=== PATIENT | female | born 1945 | race African-American/Black ===

== ENCOUNTER 2021-05-01 10:42 | Inpatient (IN) | payer MEDICARE, MEDICAID ==
[~2021-05-01] VITALS: Ht 152.4 cm; Wt 65.3 kg
[2021-05-01] VITALS (33 sets, daily range): BP systolic 129–199; BP diastolic 66–114
[~2021-05-01 10:42] MED LIST: DONE5TAB33 PO; MEMA10TA2 PO; RISP1DIS PO; SIMV-43 PO
[2021-05-01] MEDS ORDERED: PROPOFOL 10MG/ML 100ML 100 ML IV ONE (11:00)
[2021-05-01] MEDS ORDERED: AZITHROMYCIN 500 MG in DEXT 5% WATER 250 ML IV ONE (11:00)
[2021-05-01] MEDS ORDERED: SODIUM CHLORIDE 0.9% 1,000 ML IV ONE (11:00)
[2021-05-01] MEDS ORDERED: DEXAMETHASONE 10 MG/ML VIAL IV ONE (11:00)
[2021-05-01] MEDS ORDERED: CEFTRIAXONE 1 G PREMIX 50 ML IV ONE (11:00)
[2021-05-01] MEDS ORDERED: ETOMIDATE 2MG/ML 10ML VIAL IV ONE (11:00)
[2021-05-01 11:38] LABS: BG BASE EXCESS -2.2 mmol/L (-2.0-2.0); BG CARBOXYHEMOGLOBIN 0.6 % (0.5-1.5); BG DEOXYHEMOGLOBIN 1.9 % (0.0-5.0); BG FRACTION INSPIRED OXYGEN 100; BG HCO3 ACT 27.2 mmol/L (22.0-26.0); BG METHEMOGLOBIN 0.4 % (0.0-1.5); BG OXYGEN SATURATION 98.1 % (92.0-98.5); BG OXYHEMOGLOBIN 97.1 % (94.0-97.0); BG PCO2 70.6 mmHg (35.0-45.0); BG PH 7.203 (7.350-7.450); BG PO2 145.2 mmHg (75.0-100.0); BG SAMPLE SITE RIGHT RADIAL; BG TOTAL HEMOGLOBIN 12.2 g/dL (12.0-18.0); BG VENT MODE VENT - AC
[2021-05-01 11:46] LABS: BASOPHILS % 0.1 % (0.0-2.0); HEMATOCRIT. 29.9 % (36.0-48.0); HEMOGLOBIN. 9.9 g/dL (12.0-16.0); LYMPHOCYTES % 7.5 % (20.0-50.0); MEAN CORPUSCULAR HEMOGLOBIN 31.1 pg (28.0-32.0); MEAN CORPUSCULAR VOLUME 93.9 fL (81.0-99.0); MEAN PLATELET VOLUME 7.9 fl (7.4-10.4); MONOCYTES % 6.3 % (2.0-8.0); NEUTROPHILS % 86.1 % (40.0-76.0); PLATELET 325 x1000/uL (130-400); RED BLOOD CELL COUNT 3.19 mill/uL (4.2-5.4); RED CELL DISTRIBUTION WIDTH 14.3 % (11.6-14.6)
[2021-05-01 11:52] LABS: CLARITY URINE CLOUDY (CLEAR); COLOR URINE YELLOW (YELLOW); KETONES URINE TRACE (NEGATIVE); LEUKOCYTE ESTERASE URINE NEGATIVE (NEGATIVE); NITRITE URINE NEGATIVE (NEGATIVE); OCCULT BLOOD URINE 1+ (NEGATIVE); PH URINE 5.5 (4.5-8.0); PROTEIN URINE 3+ (NEGATIVE); SPECIFIC GRAVITY URINE 1.025 (1.005-1.030)
[2021-05-01 11:55] LABS: CHLORIDE 125 mEq/L (98-107)
[2021-05-01 12:02] LABS: CREATINE KINASE 128 IU/L (26-192)
[2021-05-01 12:04] LABS: D-DIMER 8.43 mg/L FEU (<0.50); INR 1.1; PROTHROMBIN TIME 11.4 sec (9.6-11.0)
[2021-05-01] MEDS ORDERED: PROPOFOL 10MG/ML 100ML 100 ML IV PRN (12:45)
[2021-05-01] MEDS ORDERED: ASPIRIN 300MG SUPP PR ONE (12:45)
[2021-05-01] MEDS ORDERED: IPRATROPIUM/ALBUTEROL 0.5-3(2.5)MG/3ML NEB HHN PRN (12:45)
[2021-05-01] MEDS ORDERED: FENTANYL CITRATE/PF 2,500 MCG in SODIUM CHLORIDE 0.9% 200 ML IV PRN (12:45)
[2021-05-01] MEDS ORDERED: PANTOPRAZOLE SODIUM 40 MG/VIAL IV SCH (13:00)
[2021-05-01] MEDS: ENOXAPARIN 30MG/0.3ML SYR SUBCUT SCH (13:45)
[2021-05-01] MEDS ORDERED: ONDANSETRON HCL 4MG/2ML INJ IV PRN (17:45)
[2021-05-01] MEDS ORDERED: MAGNESIUM/ALUMINUM HYDROXIDE/SIMETHICONE 30ML UDC PO PRN (17:45)
[2021-05-01] MEDS ORDERED: GUAIFENESIN 200MG/10ML SUGAR FREE UDC PO PRN (17:45)
[2021-05-01] MEDS ORDERED: NA PHOS,M-B/NA PHOS,DI-BA ENEMA 118ML PR PRN (17:45)
[2021-05-01] MEDS ORDERED: ENOXAPARIN 40MG/0.4ML SYR SUBCUT SCH (17:45)
[2021-05-01] MEDS ORDERED: NOREPINEPHRINE 8 MG in DEXT 5% WATER 242 ML IV PRN (17:45)
[2021-05-01] MEDS ORDERED: DOCUSATE SODIUM 100MG CAPSULE PO PRN (17:45)
[2021-05-01 22:53] LABS: T4 FREE 1.26 ng/dL (0.76-1.46)
[2021-05-02] VITALS (94 sets, daily range): BP systolic 105–185; BP diastolic 48–103
[2021-05-02] MEDS: CLONIDINE 0.1MG TABLET PO PRN (00:36)
[2021-05-02] MEDS: FENTANYL CITRATE/PF 2,500 MCG in SODIUM CHLORIDE 0.9% 200 ML IV PRN (00:37)
[2021-05-02 04:53] LABS: BASOPHILS % 0.1 % (0.0-2.0); HEMATOCRIT. 32.7 % (36.0-48.0); HEMOGLOBIN. 10.7 g/dL (12.0-16.0); LYMPHOCYTES % 8.9 % (20.0-50.0); MEAN CORPUSCULAR HEMOGLOBIN 30.5 pg (28.0-32.0); MEAN CORPUSCULAR VOLUME 93.2 fL (81.0-99.0); MEAN PLATELET VOLUME 8.4 fl (7.4-10.4); MONOCYTES % 4.6 % (2.0-8.0); NEUTROPHILS % 86.4 % (40.0-76.0); PLATELET 359 x1000/uL (130-400); RED BLOOD CELL COUNT 3.51 mill/uL (4.2-5.4); RED CELL DISTRIBUTION WIDTH 14.2 % (11.6-14.6)
[2021-05-02 05:13] LABS: CHLORIDE 126 mEq/L (98-107)
[2021-05-02 05:25] LABS: PHOSPHORUS 2.8 mg/dL (2.5-4.9)
[2021-05-02] MEDS: AZITHROMYCIN 500MG in DEXTROSE 5% WATER 250ML IV SCH (08:45)
[2021-05-02] MEDS: DEXAMETHASONE 10 MG/ML VIAL IV SCH (08:45)
[2021-05-02] MEDS: PANTOPRAZOLE SODIUM 40 MG/VIAL IV SCH (08:45)
[2021-05-02] MEDS: ENOXAPARIN 30MG/0.3ML SYR SUBCUT SCH (08:46)
[2021-05-02] MEDS ORDERED: AZITHROMYCIN 500 MG in DEXT 5% WATER 250 ML IV SCH (09:00)
[2021-05-02] MEDS ORDERED: DEXTROSE 50% WATER 50ML SYRINGE IV PRN ×2 (09:30→19:30)
[2021-05-02 09:48] LABS: BG BASE EXCESS 0.3 mmol/L (-2.0-2.0); BG CARBOXYHEMOGLOBIN 0.2 % (0.5-1.5); BG DEOXYHEMOGLOBIN 2.8 % (0.0-5.0); BG FRACTION INSPIRED OXYGEN 80; BG HCO3 ACT 25.3 mmol/L (22.0-26.0); BG METHEMOGLOBIN 0.3 % (0.0-1.5); BG OXYGEN SATURATION 97.2 % (92.0-98.5); BG OXYHEMOGLOBIN 96.7 % (94.0-97.0); BG PCO2 42.4 mmHg (35.0-45.0); BG PH 7.394 (7.350-7.450); BG PO2 101.4 mmHg (75.0-100.0); BG SAMPLE SITE RIGHT RADIAL; BG TOTAL HEMOGLOBIN 10.6 g/dL (12.0-18.0); BG VENT MODE VENT - AC
[2021-05-02] MEDS: CEFTRIAXONE 1,000 MG in DEXTROSE 5% WATER 50 ML IV SCH (09:48)
[2021-05-02] MEDS ORDERED: CEFTRIAXONE 1 G PREMIX 50 ML IV SCH (10:00)
[2021-05-02] MEDS: INSULIN LISPRO 100 UNITS/ML SUBCUT SCH ×3 (12:18→23:30)
[2021-05-02] MEDS: BLOOD SUGAR DIAGNOSTIC STRIP TEST SCH ×3 (12:20→23:30)
[2021-05-02 15:20] LABS: FOLIC ACID (FOLATE) SERUM 5.6 ng/mL (>5.38)
[2021-05-02] MEDS ORDERED: FUROSEMIDE 40MG/4ML VIAL IVP NR (18:00)
[2021-05-03] VITALS (94 sets, daily range): BP systolic 102–161; BP diastolic 51–99
[2021-05-03] MEDS: FENTANYL CITRATE/PF 2,500 MCG in SODIUM CHLORIDE 0.9% 200 ML IV PRN ×2 (02:29→18:14)
[2021-05-03 05:33] LABS: HEMATOCRIT. 31.3 % (36.0-48.0); HEMOGLOBIN. 10.5 g/dL (12.0-16.0); MEAN CORPUSCULAR HEMOGLOBIN 31.3 pg (28.0-32.0); MEAN CORPUSCULAR VOLUME 93.4 fL (81.0-99.0); MEAN PLATELET VOLUME 8.5 fl (7.4-10.4); PLATELET 346 x1000/uL (130-400); RED BLOOD CELL COUNT 3.35 mill/uL (4.2-5.4); RED CELL DISTRIBUTION WIDTH 14.2 % (11.6-14.6)
[2021-05-03 05:41] LABS: CHLORIDE 124 mEq/L (98-107)
[2021-05-03] MEDS: BLOOD SUGAR DIAGNOSTIC STRIP TEST SCH ×3 (06:10→17:17)
[2021-05-03] MEDS: INSULIN LISPRO 100 UNITS/ML SUBCUT SCH ×3 (06:16→17:22)
[2021-05-03] MEDS: DEXAMETHASONE 10 MG/ML VIAL IV SCH (08:01)
[2021-05-03] MEDS: AZITHROMYCIN 500MG in DEXTROSE 5% WATER 250ML IV SCH (08:01)
[2021-05-03] MEDS: PANTOPRAZOLE SODIUM 40 MG/VIAL IV SCH (08:01)
[2021-05-03] MEDS: ENOXAPARIN 30MG/0.3ML SYR SUBCUT SCH (08:02)
[2021-05-03 09:43] LABS: BG BASE EXCESS 2.7 mmol/L (-2.0-2.0); BG CARBOXYHEMOGLOBIN 0.3 % (0.5-1.5); BG DEOXYHEMOGLOBIN 3.2 % (0.0-5.0); BG FRACTION INSPIRED OXYGEN 80; BG HCO3 ACT 28.8 mmol/L (22.0-26.0); BG METHEMOGLOBIN 0.2 % (0.0-1.5); BG OXYGEN SATURATION 96.8 % (92.0-98.5); BG OXYHEMOGLOBIN 96.3 % (94.0-97.0); BG PCO2 51.4 mmHg (35.0-45.0); BG PH 7.367 (7.350-7.450); BG SAMPLE SITE RIGHT RADIAL; BG TOTAL HEMOGLOBIN 11.6 g/dL (12.0-18.0); BG VENT MODE VENT - AC
[2021-05-03] MEDS: LISINOPRIL 20MG TABLET PO SCH (10:48)
[2021-05-03] MEDS: CEFTRIAXONE 1,000 MG in DEXTROSE 5% WATER 50 ML IV SCH (10:48)
[2021-05-03] MEDS: FOLIC ACID 1MG TABLET PO SCH (12:34)
[2021-05-03] MEDS: THIAMINE HCL 100MG TABLET PO SCH (12:34)
[2021-05-03 14:59] LABS: PLATELET ESTIMATE NORMAL
[2021-05-03] MEDS: DOXYCYCLINE HYCLATE 100MG CAPSULE PO SCH (15:39)
[2021-05-03] MEDS: LEVETIRACETAM 500MG/5ML CUP PO SCH (20:00)
[2021-05-04] VITALS (96 sets, daily range): BP systolic 90–159; BP diastolic 36–87
[2021-05-04] MEDS: METOCLOPRAMIDE HCL 10MG/2ML VIAL IV SCH ×4 (01:05→17:43)
[2021-05-04] MEDS: INSULIN LISPRO 100 UNITS/ML SUBCUT SCH ×4 (01:06→17:44)
[2021-05-04] MEDS: DOXYCYCLINE HYCLATE 100MG CAPSULE PO SCH ×2 (05:10→17:43)
[2021-05-04] MEDS: BLOOD SUGAR DIAGNOSTIC STRIP TEST SCH ×4 (05:10→17:37)
[2021-05-04] MEDS: FENTANYL CITRATE/PF 2,500 MCG in SODIUM CHLORIDE 0.9% 200 ML IV PRN (05:12)
[2021-05-04 05:34] LABS: HEMATOCRIT. 30.5 % (36.0-48.0); HEMOGLOBIN. 9.7 g/dL (12.0-16.0); MEAN CORPUSCULAR HEMOGLOBIN 29.8 pg (28.0-32.0); MEAN CORPUSCULAR VOLUME 93.5 fL (81.0-99.0); MEAN PLATELET VOLUME 8.7 fl (7.4-10.4); PLATELET 347 x1000/uL (130-400); RED BLOOD CELL COUNT 3.27 mill/uL (4.2-5.4); RED CELL DISTRIBUTION WIDTH 14.1 % (11.6-14.6)
[2021-05-04 05:39] LABS: CHLORIDE 123 mEq/L (98-107)
[2021-05-04 08:39] LABS: BG BASE EXCESS 1.3 mmol/L (-2.0-2.0); BG CARBOXYHEMOGLOBIN 0.3 % (0.5-1.5); BG DEOXYHEMOGLOBIN 5.5 % (0.0-5.0); BG FRACTION INSPIRED OXYGEN 70; BG HCO3 ACT 25.7 mmol/L (22.0-26.0); BG METHEMOGLOBIN 0.2 % (0.0-1.5); BG OXYGEN SATURATION 94.5 % (92.0-98.5); BG PCO2 40.2 mmHg (35.0-45.0); BG PH 7.424 (7.350-7.450); BG PO2 72.3 mmHg (75.0-100.0); BG SAMPLE SITE RIGHT RADIAL; BG TOTAL HEMOGLOBIN 10.1 g/dL (12.0-18.0); BG TOTAL RESPIRATORY RATE 22 b/min; BG VENT MODE VENT - AC
[2021-05-04] MEDS: LEVETIRACETAM 500MG/5ML CUP PO SCH ×2 (09:39→20:07)
[2021-05-04] MEDS: FOLIC ACID 1MG TABLET PO SCH (09:39)
[2021-05-04] MEDS: DEXAMETHASONE 10 MG/ML VIAL IV SCH (09:40)
[2021-05-04] MEDS: ENOXAPARIN 30MG/0.3ML SYR SUBCUT SCH (09:40)
[2021-05-04] MEDS: THIAMINE HCL 100MG TABLET PO SCH (09:40)
[2021-05-04] MEDS: PANTOPRAZOLE SODIUM 40 MG/VIAL IV SCH (09:40)
[2021-05-04] MEDS: CEFTRIAXONE 1,000 MG in DEXTROSE 5% WATER 50 ML IV SCH (09:41)
[2021-05-04] MEDS: LISINOPRIL 20MG TABLET PO SCH (09:41)
[2021-05-04] MEDS ORDERED: RISPERIDONE 1MG TABLET PO SCH (12:00)
[2021-05-04] MEDS: IPRATROPIUM/ALBUTEROL 0.5-3(2.5)MG/3ML NEB HHN SCH ×3 (12:40→20:01)
[2021-05-04 12:42] LABS: NUCLEATED RED BLOOD CELLS 1 /100 WBC; PLATELET ESTIMATE NORMAL
[2021-05-04] MEDS ORDERED: MIDAZOLAM 100MG/100ML PMX 100 ML IV PRN (13:00)
[2021-05-04] MEDS: LORAZEPAM 2MG/ML CPJ IV PRN ×2 (13:29→17:44)
[2021-05-04] MEDS: MIDAZOLAM HCL 100 MG in SODIUM CHLORIDE 0.9% 100 ML IV PRN (13:51)
[2021-05-05] VITALS (97 sets, daily range): BP systolic 79–167; BP diastolic 42–121
[2021-05-05] MEDS: METOCLOPRAMIDE HCL 10MG/2ML VIAL IV SCH ×4 (00:13→17:07)
[2021-05-05] MEDS: IPRATROPIUM/ALBUTEROL 0.5-3(2.5)MG/3ML NEB HHN SCH ×6 (00:15→20:40)
[2021-05-05] MEDS: BLOOD SUGAR DIAGNOSTIC STRIP TEST SCH ×4 (00:28→17:04)
[2021-05-05] MEDS: DOXYCYCLINE HYCLATE 100MG CAPSULE PO SCH ×2 (05:06→17:07)
[2021-05-05] MEDS: INSULIN LISPRO 100 UNITS/ML SUBCUT SCH ×4 (05:20→17:07)
[2021-05-05 07:41] LABS: BG BASE EXCESS 1.6 mmol/L (-2.0-2.0); BG CARBOXYHEMOGLOBIN 0.3 % (0.5-1.5); BG DEOXYHEMOGLOBIN 6.3 % (0.0-5.0); BG HCO3 ACT 25.5 mmol/L (22.0-26.0); BG METHEMOGLOBIN 0.1 % (0.0-1.5); BG OXYGEN SATURATION 93.7 % (92.0-98.5); BG OXYHEMOGLOBIN 93.3 % (94.0-97.0); BG PCO2 37.3 mmHg (35.0-45.0); BG PH 7.452 (7.350-7.450); BG PO2 68.9 mmHg (75.0-100.0); BG SAMPLE SITE RIGHT RADIAL; BG TOTAL HEMOGLOBIN 10.9 g/dL (12.0-18.0); BG VENT MODE VENT - AC
[2021-05-05] MEDS: PANTOPRAZOLE SODIUM 40 MG/VIAL IV SCH (08:12)
[2021-05-05] MEDS: LISINOPRIL 20MG TABLET PO SCH (08:12)
[2021-05-05] MEDS: FOLIC ACID 1MG TABLET PO SCH (08:12)
[2021-05-05] MEDS: LEVETIRACETAM 500MG/5ML CUP PO SCH ×2 (08:12→20:44)
[2021-05-05] MEDS: THIAMINE HCL 100MG TABLET PO SCH (08:12)
[2021-05-05] MEDS: ENOXAPARIN 30MG/0.3ML SYR SUBCUT SCH (08:12)
[2021-05-05] MEDS: DEXAMETHASONE 10 MG/ML VIAL IV SCH (08:13)
[2021-05-05] MEDS: CEFTRIAXONE 1,000 MG in DEXTROSE 5% WATER 50 ML IV SCH (09:11)
[2021-05-05] MEDS: ACETAMINOPHEN 325MG TABLET PO PRN (11:58)
[2021-05-05 12:32] LABS: HEMATOCRIT. 30.4 % (36.0-48.0); HEMOGLOBIN. 9.8 g/dL (12.0-16.0); MEAN CORPUSCULAR HEMOGLOBIN 29.9 pg (28.0-32.0); MEAN CORPUSCULAR VOLUME 92.7 fL (81.0-99.0); MEAN PLATELET VOLUME 8.8 fl (7.4-10.4); PLATELET 262 x1000/uL (130-400); RED BLOOD CELL COUNT 3.28 mill/uL (4.2-5.4); RED CELL DISTRIBUTION WIDTH 13.5 % (11.6-14.6)
[2021-05-05 12:39] LABS: CHLORIDE 116 mEq/L (98-107)
[2021-05-05 13:03] LABS: PLATELET ESTIMATE NORMAL
[2021-05-05] MEDS: CLONIDINE 0.1MG TABLET PO PRN (22:39)
[2021-05-06] VITALS (94 sets, daily range): BP systolic 103–175; BP diastolic 54–103
[2021-05-06] MEDS: IPRATROPIUM/ALBUTEROL 0.5-3(2.5)MG/3ML NEB HHN SCH ×6 (00:23→21:57)
[2021-05-06 05:40] LABS: HEMATOCRIT. 31.9 % (36.0-48.0); HEMOGLOBIN. 10.5 g/dL (12.0-16.0); MEAN CORPUSCULAR HEMOGLOBIN 30.7 pg (28.0-32.0); MEAN CORPUSCULAR VOLUME 93.3 fL (81.0-99.0); PLATELET 263 x1000/uL (130-400); RED BLOOD CELL COUNT 3.42 mill/uL (4.2-5.4); RED CELL DISTRIBUTION WIDTH 13.9 % (11.6-14.6)
[2021-05-06] MEDS: BLOOD SUGAR DIAGNOSTIC STRIP TEST SCH ×4 (05:42→17:02)
[2021-05-06] MEDS: CLONIDINE 0.1MG TABLET PO PRN (05:42)
[2021-05-06] MEDS: DOXYCYCLINE HYCLATE 100MG CAPSULE PO SCH ×2 (05:42→17:28)
[2021-05-06] MEDS: METOCLOPRAMIDE HCL 10MG/2ML VIAL IV SCH ×4 (05:42→17:28)
[2021-05-06] MEDS: INSULIN LISPRO 100 UNITS/ML SUBCUT SCH ×4 (05:43→17:30)
[2021-05-06 05:44] LABS: CHLORIDE 116 mEq/L (98-107)
[2021-05-06] MEDS: ENOXAPARIN 30MG/0.3ML SYR SUBCUT SCH (08:09)
[2021-05-06] MEDS: LEVETIRACETAM 500MG/5ML CUP PO SCH ×2 (08:09→21:17)
[2021-05-06] MEDS: DEXAMETHASONE 10 MG/ML VIAL IV SCH (08:09)
[2021-05-06] MEDS: PANTOPRAZOLE SODIUM 40 MG/VIAL IV SCH (08:09)
[2021-05-06] MEDS: THIAMINE HCL 100MG TABLET PO SCH (08:09)
[2021-05-06] MEDS: FOLIC ACID 1MG TABLET PO SCH (08:10)
[2021-05-06] MEDS: LISINOPRIL 20MG TABLET PO SCH (08:10)
[2021-05-06] MEDS: CEFTRIAXONE 1,000 MG in DEXTROSE 5% WATER 50 ML IV SCH (09:20)
[2021-05-06 12:11] LABS: PLATELET ESTIMATE NORMAL
[2021-05-06] MEDS: MIDAZOLAM HCL 100 MG in SODIUM CHLORIDE 0.9% 100 ML IV PRN (14:38)
[2021-05-07] VITALS (95 sets, daily range): BP systolic 106–172; BP diastolic 37–101
[2021-05-07] MEDS: METOCLOPRAMIDE HCL 10MG/2ML VIAL IV SCH ×5 (00:14→23:25)
[2021-05-07] MEDS: BLOOD SUGAR DIAGNOSTIC STRIP TEST SCH ×5 (00:15→23:46)
[2021-05-07] MEDS: IPRATROPIUM/ALBUTEROL 0.5-3(2.5)MG/3ML NEB HHN SCH ×6 (02:13→20:47)
[2021-05-07] MEDS: DOXYCYCLINE HYCLATE 100MG CAPSULE PO SCH ×2 (05:32→17:45)
[2021-05-07] MEDS: MIDAZOLAM HCL 100 MG in SODIUM CHLORIDE 0.9% 100 ML IV PRN (05:48)
[2021-05-07] MEDS: INSULIN LISPRO 100 UNITS/ML SUBCUT SCH ×5 (05:49→23:46)
[2021-05-07 07:39] LABS: BG BASE EXCESS 3.2 mmol/L (-2.0-2.0); BG CARBOXYHEMOGLOBIN 0.3 % (0.5-1.5); BG DEOXYHEMOGLOBIN 7.6 % (0.0-5.0); BG HCO3 ACT 26.8 mmol/L (22.0-26.0); BG METHEMOGLOBIN 0.1 % (0.0-1.5); BG OXYGEN SATURATION 92.4 % (92.0-98.5); BG PCO2 37.2 mmHg (35.0-45.0); BG PH 7.476 (7.350-7.450); BG SAMPLE SITE RIGHT RADIAL; BG TOTAL HEMOGLOBIN 10.4 g/dL (12.0-18.0); BG VENT MODE VENT - AC
[2021-05-07] MEDS: LEVETIRACETAM 500MG/5ML CUP PO SCH ×2 (09:27→20:44)
[2021-05-07] MEDS: FOLIC ACID 1MG TABLET PO SCH (09:28)
[2021-05-07] MEDS: THIAMINE HCL 100MG TABLET PO SCH (09:28)
[2021-05-07] MEDS: PANTOPRAZOLE SODIUM 40 MG/VIAL IV SCH (09:28)
[2021-05-07] MEDS: ENOXAPARIN 40MG/0.4ML SYR SUBCUT SCH (09:28)
[2021-05-07] MEDS: DEXAMETHASONE 10 MG/ML VIAL IV SCH (09:28)
[2021-05-07] MEDS: LISINOPRIL 20MG TABLET PO SCH (09:28)
[2021-05-07] MEDS: FENTANYL CITRATE/PF 2,500 MCG in SODIUM CHLORIDE 0.9% 200 ML IV PRN (09:30)
[2021-05-07] MEDS ORDERED: METOCLOPRAMIDE HCL 10MG/2ML VIAL IV SCH (18:00)
[2021-05-08] VITALS (97 sets, daily range): BP systolic 104–148; BP diastolic 52–84
[2021-05-08] MEDS: IPRATROPIUM/ALBUTEROL 0.5-3(2.5)MG/3ML NEB HHN SCH ×6 (00:57→20:29)
[2021-05-08 04:58] LABS: HEMATOCRIT. 28.9 % (36.0-48.0); HEMOGLOBIN. 9.4 g/dL (12.0-16.0); MEAN CORPUSCULAR VOLUME 92.2 fL (81.0-99.0); MEAN PLATELET VOLUME 9.4 fl (7.4-10.4); PLATELET 313 x1000/uL (130-400); RED BLOOD CELL COUNT 3.14 mill/uL (4.2-5.4); RED CELL DISTRIBUTION WIDTH 14.1 % (11.6-14.6)
[2021-05-08 05:07] LABS: CHLORIDE 110 mEq/L (98-107)
[2021-05-08] MEDS: INSULIN LISPRO 100 UNITS/ML SUBCUT SCH ×3 (05:14→17:30)
[2021-05-08] MEDS: BLOOD SUGAR DIAGNOSTIC STRIP TEST SCH ×3 (05:14→17:27)
[2021-05-08] MEDS: DOXYCYCLINE HYCLATE 100MG CAPSULE PO SCH (05:22)
[2021-05-08] MEDS: METOCLOPRAMIDE HCL 10MG/2ML VIAL IV SCH ×4 (05:22→23:10)
[2021-05-08] MEDS: FENTANYL CITRATE/PF 2,500 MCG in SODIUM CHLORIDE 0.9% 200 ML IV PRN (06:29)
[2021-05-08] MEDS: THIAMINE HCL 100MG TABLET PO SCH (08:26)
[2021-05-08] MEDS: DEXAMETHASONE 10 MG/ML VIAL IV SCH (08:26)
[2021-05-08] MEDS: FOLIC ACID 1MG TABLET PO SCH (08:27)
[2021-05-08] MEDS: LEVETIRACETAM 500MG/5ML CUP PO SCH ×2 (08:28→21:33)
[2021-05-08] MEDS: PANTOPRAZOLE SODIUM 40 MG/VIAL IV SCH (08:28)
[2021-05-08] MEDS: ENOXAPARIN 40MG/0.4ML SYR SUBCUT SCH (08:28)
[2021-05-08] MEDS: LISINOPRIL 20MG TABLET PO SCH (08:29)
[2021-05-08 08:40] LABS: BG BASE EXCESS 1.5 mmol/L (-2.0-2.0); BG CARBOXYHEMOGLOBIN 0.1 % (0.5-1.5); BG DEOXYHEMOGLOBIN 9.6 % (0.0-5.0); BG FRACTION INSPIRED OXYGEN 55; BG HCO3 ACT 26.6 mmol/L (22.0-26.0); BG METHEMOGLOBIN 0.1 % (0.0-1.5); BG OXYGEN SATURATION 90.4 % (92.0-98.5); BG OXYHEMOGLOBIN 90.2 % (94.0-97.0); BG PCO2 44.3 mmHg (35.0-45.0); BG PH 7.396 (7.350-7.450); BG SAMPLE SITE RIGHT RADIAL; BG TOTAL HEMOGLOBIN 9.7 g/dL (12.0-18.0); BG VENT MODE VENT - SIMV
[2021-05-08 10:28] LABS: PLATELET ESTIMATE NORMAL
[2021-05-09] VITALS (93 sets, daily range): BP systolic 107–167; BP diastolic 56–98
[2021-05-09] MEDS: IPRATROPIUM/ALBUTEROL 0.5-3(2.5)MG/3ML NEB HHN SCH ×6 (00:04→20:44)
[2021-05-09] MEDS: BLOOD SUGAR DIAGNOSTIC STRIP TEST SCH ×4 (00:04→18:28)
[2021-05-09] MEDS: INSULIN LISPRO 100 UNITS/ML SUBCUT SCH ×4 (00:06→18:00)
[2021-05-09] MEDS: METOCLOPRAMIDE HCL 10MG/2ML VIAL IV SCH ×3 (05:09→18:28)
[2021-05-09 06:07] LABS: CHLORIDE 108 mEq/L (98-107); HEMOGLOBIN. 9.3 g/dL (12.0-16.0); MEAN CORPUSCULAR HEMOGLOBIN 30.3 pg (28.0-32.0); MEAN PLATELET VOLUME 9.2 fl (7.4-10.4); PLATELET 289 x1000/uL (130-400); RED BLOOD CELL COUNT 3.09 mill/uL (4.2-5.4); RED CELL DISTRIBUTION WIDTH 13.8 % (11.6-14.6)
[2021-05-09] MEDS: FENTANYL CITRATE/PF 2,500 MCG in SODIUM CHLORIDE 0.9% 200 ML IV PRN ×2 (06:48→12:54)
[2021-05-09 08:00] LABS: BG BASE EXCESS 2.6 mmol/L (-2.0-2.0); BG CARBOXYHEMOGLOBIN 0.3 % (0.5-1.5); BG DEOXYHEMOGLOBIN 12.2 % (0.0-5.0); BG METHEMOGLOBIN 0.2 % (0.0-1.5); BG OXYGEN SATURATION 87.7 % (92.0-98.5); BG OXYHEMOGLOBIN 87.3 % (94.0-97.0); BG PCO2 46.9 mmHg (35.0-45.0); BG PH 7.394 (7.350-7.450); BG SAMPLE SITE RIGHT RADIAL; BG TOTAL HEMOGLOBIN 10.1 g/dL (12.0-18.0); BG VENT MODE VENT - SIMV
[2021-05-09] MEDS: LEVETIRACETAM 500MG/5ML CUP PO SCH ×2 (08:37→20:27)
[2021-05-09] MEDS: LISINOPRIL 20MG TABLET PO SCH (08:38)
[2021-05-09] MEDS: PANTOPRAZOLE SODIUM 40 MG/VIAL IV SCH (08:38)
[2021-05-09] MEDS: ENOXAPARIN 40MG/0.4ML SYR SUBCUT SCH (08:38)
[2021-05-09] MEDS: DEXAMETHASONE 10 MG/ML VIAL IV SCH (08:38)
[2021-05-09] MEDS: THIAMINE HCL 100MG TABLET PO SCH (08:38)
[2021-05-09] MEDS: FOLIC ACID 1MG TABLET PO SCH (08:39)
[2021-05-09 09:08] LABS: PLATELET ESTIMATE NORMAL
[2021-05-09] MEDS ORDERED: DOPAMINE 400MG/250ML PREMIX 250 ML IV PRN (14:00)
[2021-05-10] VITALS (99 sets, daily range): BP systolic 96–239; BP diastolic 53–135
[2021-05-10] MEDS: IPRATROPIUM/ALBUTEROL 0.5-3(2.5)MG/3ML NEB HHN SCH ×6 (00:17→21:05)
[2021-05-10] MEDS: METOCLOPRAMIDE HCL 10MG/2ML VIAL IV SCH ×4 (01:12→23:25)
[2021-05-10] MEDS: CLONIDINE 0.1MG TABLET PO PRN ×2 (04:02→17:11)
[2021-05-10] MEDS: BLOOD SUGAR DIAGNOSTIC STRIP TEST SCH ×5 (05:29→23:20)
[2021-05-10] MEDS: INSULIN LISPRO 100 UNITS/ML SUBCUT SCH ×4 (05:34→23:20)
[2021-05-10 05:54] LABS: BASOPHILS % 0.1 % (0.0-2.0); EOSINOPHILS % 0.1 % (0.0-5.0); HEMOGLOBIN. 11.1 g/dL (12.0-16.0); LYMPHOCYTES % 12.3 % (20.0-50.0); MEAN CORPUSCULAR HEMOGLOBIN 30.4 pg (28.0-32.0); MEAN CORPUSCULAR VOLUME 92.7 fL (81.0-99.0); MEAN PLATELET VOLUME 9.7 fl (7.4-10.4); NEUTROPHILS % 80.5 % (40.0-76.0); PLATELET 404 x1000/uL (130-400); RED BLOOD CELL COUNT 3.66 mill/uL (4.2-5.4); RED CELL DISTRIBUTION WIDTH 13.7 % (11.6-14.6)
[2021-05-10 06:09] LABS: CHLORIDE 106 mEq/L (98-107)
[2021-05-10] MEDS: PANTOPRAZOLE SODIUM 40 MG/VIAL IV SCH (10:53)
[2021-05-10] MEDS: THIAMINE HCL 100MG TABLET PO SCH (10:54)
[2021-05-10] MEDS: LEVETIRACETAM 500MG/5ML CUP PO SCH ×2 (10:54→20:23)
[2021-05-10] MEDS: ENOXAPARIN 40MG/0.4ML SYR SUBCUT SCH (10:54)
[2021-05-10] MEDS: DEXAMETHASONE 10 MG/ML VIAL IV SCH (10:54)
[2021-05-10] MEDS: FOLIC ACID 1MG TABLET PO SCH (11:04)
[2021-05-10] MEDS: LISINOPRIL 20MG TABLET PO SCH (11:04)
[2021-05-11] VITALS (91 sets, daily range): BP systolic 99–192; BP diastolic 51–112
[2021-05-11] MEDS: IPRATROPIUM/ALBUTEROL 0.5-3(2.5)MG/3ML NEB HHN SCH ×5 (01:12→20:56)
[2021-05-11] MEDS: FENTANYL CITRATE/PF 2,500 MCG in SODIUM CHLORIDE 0.9% 200 ML IV PRN (02:31)
[2021-05-11] MEDS: METOCLOPRAMIDE HCL 10MG/2ML VIAL IV SCH ×4 (05:11→23:37)
[2021-05-11] MEDS: BLOOD SUGAR DIAGNOSTIC STRIP TEST SCH ×4 (05:11→23:35)
[2021-05-11] MEDS: INSULIN LISPRO 100 UNITS/ML SUBCUT SCH ×4 (05:18→23:38)
[2021-05-11] MEDS: ENOXAPARIN 40MG/0.4ML SYR SUBCUT SCH (08:06)
[2021-05-11] MEDS: PANTOPRAZOLE SODIUM 40 MG/VIAL IV SCH (08:06)
[2021-05-11] MEDS: LEVETIRACETAM 500MG/5ML CUP PO SCH ×2 (08:06→20:22)
[2021-05-11] MEDS: LISINOPRIL 20MG TABLET PO SCH (08:07)
[2021-05-11] MEDS: THIAMINE HCL 100MG TABLET PO SCH (08:07)
[2021-05-11] MEDS: DEXAMETHASONE 10 MG/ML VIAL IV SCH (08:07)
[2021-05-11] MEDS: FOLIC ACID 1MG TABLET PO SCH (08:07)
[2021-05-11] MEDS: ACETAMINOPHEN 325MG TABLET PO PRN ×2 (08:08→18:25)
[2021-05-11 08:37] LABS: BG CARBOXYHEMOGLOBIN 0.5 % (0.5-1.5); BG DEOXYHEMOGLOBIN 6.9 % (0.0-5.0); BG FRACTION INSPIRED OXYGEN 55; BG HCO3 ACT 31.4 mmol/L (22.0-26.0); BG METHEMOGLOBIN 0.3 % (0.0-1.5); BG OXYHEMOGLOBIN 92.3 % (94.0-97.0); BG PCO2 44.7 mmHg (35.0-45.0); BG PH 7.465 (7.350-7.450); BG SAMPLE SITE RIGHT RADIAL; BG VENT MODE VENT - SIMV
[2021-05-11] MEDS: CLONIDINE 0.1MG TABLET PO PRN (14:19)
[2021-05-12] VITALS (75 sets, daily range): BP systolic 114–207; BP diastolic 58–125
[2021-05-12] MEDS: IPRATROPIUM/ALBUTEROL 0.5-3(2.5)MG/3ML NEB HHN SCH ×6 (01:04→20:13)
[2021-05-12] MEDS: BLOOD SUGAR DIAGNOSTIC STRIP TEST SCH ×4 (05:34→23:39)
[2021-05-12] MEDS: METOCLOPRAMIDE HCL 10MG/2ML VIAL IV SCH ×4 (05:34→23:41)
[2021-05-12] MEDS: CLONIDINE 0.1MG TABLET PO PRN (05:34)
[2021-05-12] MEDS: INSULIN LISPRO 100 UNITS/ML SUBCUT SCH ×4 (05:35→23:41)
[2021-05-12 06:04] LABS: HEMATOCRIT. 28.6 % (36.0-48.0); HEMOGLOBIN. 9.4 g/dL (12.0-16.0); MEAN CORPUSCULAR HEMOGLOBIN 30.3 pg (28.0-32.0); MEAN CORPUSCULAR VOLUME 92.2 fL (81.0-99.0); MEAN PLATELET VOLUME 9.5 fl (7.4-10.4); PLATELET 292 x1000/uL (130-400); RED CELL DISTRIBUTION WIDTH 13.8 % (11.6-14.6)
[2021-05-12 06:10] LABS: CHLORIDE 103 mEq/L (98-107)
[2021-05-12 08:04] LABS: BG DEOXYHEMOGLOBIN 12.8 % (0.0-5.0); BG HCO3 ACT 32.4 mmol/L (22.0-26.0); BG METHEMOGLOBIN 0.1 % (0.0-1.5); BG OXYGEN SATURATION 87.2 % (92.0-98.5); BG OXYHEMOGLOBIN 87.1 % (94.0-97.0); BG PCO2 44.8 mmHg (35.0-45.0); BG PH 7.477 (7.350-7.450); BG PO2 52.8 mmHg (75.0-100.0); BG SAMPLE SITE RIGHT RADIAL; BG TOTAL HEMOGLOBIN 10.7 g/dL (12.0-18.0); BG VENT MODE VENT - SIMV
[2021-05-12] MEDS: ENOXAPARIN 40MG/0.4ML SYR SUBCUT SCH (09:27)
[2021-05-12] MEDS: LEVETIRACETAM 500MG/5ML CUP PO SCH ×2 (09:27→20:39)
[2021-05-12] MEDS: THIAMINE HCL 100MG TABLET PO SCH (09:27)
[2021-05-12] MEDS: PANTOPRAZOLE SODIUM 40 MG/VIAL IV SCH (09:27)
[2021-05-12] MEDS: FOLIC ACID 1MG TABLET PO SCH (09:27)
[2021-05-12] MEDS: LISINOPRIL 20MG TABLET PO SCH (09:28)
[2021-05-12] MEDS: ACETAMINOPHEN 325MG TABLET PO PRN (20:53)
[2021-05-13] VITALS (109 sets, daily range): BP systolic 82–196; BP diastolic 39–118
[2021-05-13] MEDS: IPRATROPIUM/ALBUTEROL 0.5-3(2.5)MG/3ML NEB HHN SCH ×7 (00:42→23:30)
[2021-05-13] MEDS: ACETAMINOPHEN 325MG TABLET PO PRN ×2 (04:00→18:26)
[2021-05-13] MEDS: BLOOD SUGAR DIAGNOSTIC STRIP TEST SCH ×4 (05:26→23:50)
[2021-05-13] MEDS: METOCLOPRAMIDE HCL 10MG/2ML VIAL IV SCH ×4 (05:26→23:53)
[2021-05-13] MEDS: INSULIN LISPRO 100 UNITS/ML SUBCUT SCH ×4 (05:26→23:54)
[2021-05-13 05:48] LABS: CHLORIDE 99 mEq/L (98-107)
[2021-05-13 05:53] LABS: HEMATOCRIT. 29.3 % (36.0-48.0); HEMOGLOBIN. 9.6 g/dL (12.0-16.0); MEAN CORPUSCULAR VOLUME 91.8 fL (81.0-99.0); MEAN PLATELET VOLUME 9.3 fl (7.4-10.4); PLATELET 279 x1000/uL (130-400); RED BLOOD CELL COUNT 3.19 mill/uL (4.2-5.4); RED CELL DISTRIBUTION WIDTH 13.6 % (11.6-14.6)
[2021-05-13 09:42] LABS: BG BASE EXCESS 4.6 mmol/L (-2.0-2.0); BG CARBOXYHEMOGLOBIN 0.3 % (0.5-1.5); BG DEOXYHEMOGLOBIN 15.6 % (0.0-5.0); BG FRACTION INSPIRED OXYGEN 50; BG HCO3 ACT 28.7 mmol/L (22.0-26.0); BG METHEMOGLOBIN 0.3 % (0.0-1.5); BG OXYGEN SATURATION 84.3 % (92.0-98.5); BG OXYHEMOGLOBIN 83.8 % (94.0-97.0); BG PCO2 40.9 mmHg (35.0-45.0); BG PH 7.464 (7.350-7.450); BG PO2 49.4 mmHg (75.0-100.0); BG SAMPLE SITE RIGHT RADIAL; BG TOTAL HEMOGLOBIN 10.3 g/dL (12.0-18.0); BG VENT MODE VENT - SIMV
[2021-05-13] MEDS: THIAMINE HCL 100MG TABLET PO SCH (09:55)
[2021-05-13] MEDS: LISINOPRIL 20MG TABLET PO SCH (09:55)
[2021-05-13] MEDS: FOLIC ACID 1MG TABLET PO SCH (09:55)
[2021-05-13] MEDS: PANTOPRAZOLE SODIUM 40 MG/VIAL IV SCH (09:55)
[2021-05-13] MEDS: ENOXAPARIN 40MG/0.4ML SYR SUBCUT SCH (09:57)
[2021-05-13] MEDS ORDERED: LORAZEPAM 2MG/ML CPJ IM PRN (10:30)
[2021-05-13] MEDS ORDERED: MORPHINE SULFATE 2 MG/ML CPJ (NOT FOR IM USE) IV PRN ×2 (10:30→10:45)
[2021-05-13] MEDS ORDERED: LORAZEPAM 2MG/ML CPJ IV PRN (10:45)
[2021-05-13] MEDS ORDERED: NALOXONE HCL 0.4MG/ML VIAL IV PRN (10:45)
[2021-05-13] MEDS: LORAZEPAM 2MG/ML CPJ IV PRN (10:49)
[2021-05-13] MEDS: METOPROLOL TARTRATE 50MG TABLET PO SCH ×2 (10:53→22:00)
[2021-05-13] MEDS: LEVETIRACETAM 500MG/5ML CUP PO SCH ×2 (10:53→20:33)
[2021-05-13] MEDS: FENTANYL CITRATE/PF 2,500 MCG in SODIUM CHLORIDE 0.9% 200 ML IV PRN (13:26)
[2021-05-13 17:40] LABS: PLATELET ESTIMATE NORMAL
[2021-05-13] MEDS ORDERED: VANCOMYCIN 1 G PREMIX 200 ML IV NR (18:00)
[2021-05-13] MEDS: CEFEPIME 1,000 MG in DEXTROSE 5% WATER 50 ML IV SCH (18:15)
[2021-05-13 18:25] LABS: PLATELET ESTIMATE NORMAL
[2021-05-13 22:59] LABS: CLARITY URINE CLEAR (CLEAR); COLOR URINE YELLOW (YELLOW); KETONES URINE NEGATIVE (NEGATIVE); LEUKOCYTE ESTERASE URINE NEGATIVE (NEGATIVE); NITRITE URINE NEGATIVE (NEGATIVE); OCCULT BLOOD URINE 1+ (NEGATIVE); PH URINE 5.5 (4.5-8.0); PROTEIN URINE NEGATIVE (NEGATIVE); SPECIFIC GRAVITY URINE 1.009 (1.005-1.030)
[2021-05-14] VITALS (92 sets, daily range): BP systolic 88–142; BP diastolic 43–89
[2021-05-14] MEDS: IPRATROPIUM/ALBUTEROL 0.5-3(2.5)MG/3ML NEB HHN SCH ×5 (04:25→21:08)
[2021-05-14] MEDS: INSULIN LISPRO 100 UNITS/ML SUBCUT SCH ×3 (05:40→17:41)
[2021-05-14] MEDS: BLOOD SUGAR DIAGNOSTIC STRIP TEST SCH ×3 (05:40→17:41)
[2021-05-14] MEDS: METOCLOPRAMIDE HCL 10MG/2ML VIAL IV SCH ×3 (05:40→17:39)
[2021-05-14] MEDS: CEFEPIME 1,000 MG in DEXTROSE 5% WATER 50 ML IV SCH ×2 (05:40→17:40)
[2021-05-14] MEDS: FENTANYL CITRATE/PF 2,500 MCG in SODIUM CHLORIDE 0.9% 200 ML IV PRN ×2 (06:01→23:48)
[2021-05-14 06:17] LABS: BASOPHILS % 0.1 % (0.0-2.0); EOSINOPHILS % 0.6 % (0.0-5.0); HEMATOCRIT. 31.2 % (36.0-48.0); HEMOGLOBIN. 9.6 g/dL (12.0-16.0); LYMPHOCYTES % 9.3 % (20.0-50.0); MEAN CORPUSCULAR HEMOGLOBIN 30.2 pg (28.0-32.0); MEAN CORPUSCULAR VOLUME 97.7 fL (81.0-99.0); MEAN PLATELET VOLUME 9.3 fl (7.4-10.4); MONOCYTES % 3.2 % (2.0-8.0); NEUTROPHILS % 86.8 % (40.0-76.0); PLATELET 240 x1000/uL (130-400); RED BLOOD CELL COUNT 3.19 mill/uL (4.2-5.4); RED CELL DISTRIBUTION WIDTH 14.4 % (11.6-14.6)
[2021-05-14 06:26] LABS: CHLORIDE 102 mEq/L (98-107)
[2021-05-14 06:39] LABS: CREATINE KINASE 41 IU/L (26-192)
[2021-05-14] MEDS: METOPROLOL TARTRATE 50MG TABLET PO SCH ×2 (09:00→21:00)
[2021-05-14] MEDS: LISINOPRIL 20MG TABLET PO SCH (09:00)
[2021-05-14 09:05] LABS: BG BASE EXCESS 4.3 mmol/L (-2.0-2.0); BG CARBOXYHEMOGLOBIN 0.1 % (0.5-1.5); BG DEOXYHEMOGLOBIN 10.6 % (0.0-5.0); BG FRACTION INSPIRED OXYGEN 55; BG HCO3 ACT 30.4 mmol/L (22.0-26.0); BG METHEMOGLOBIN 0.3 % (0.0-1.5); BG OXYGEN SATURATION 89.4 % (92.0-98.5); BG PCO2 53.6 mmHg (35.0-45.0); BG PH 7.371 (7.350-7.450); BG PO2 60.6 mmHg (75.0-100.0); BG SAMPLE SITE RIGHT RADIAL; BG TOTAL HEMOGLOBIN 9.1 g/dL (12.0-18.0); BG VENT MODE VENT - AC
[2021-05-14] MEDS: LEVETIRACETAM 500MG/5ML CUP PO SCH ×2 (09:09→22:02)
[2021-05-14] MEDS: ENOXAPARIN 40MG/0.4ML SYR SUBCUT SCH (09:10)
[2021-05-14] MEDS: FOLIC ACID 1MG TABLET PO SCH (09:10)
[2021-05-14] MEDS: PANTOPRAZOLE SODIUM 40 MG/VIAL IV SCH (09:10)
[2021-05-14] MEDS: THIAMINE HCL 100MG TABLET PO SCH (09:20)
[2021-05-14] MEDS: VANCOMYCIN 750 MG PREMIX 150 ML IV SCH (12:06)
[2021-05-14] MEDS: ACETAMINOPHEN 325MG TABLET PO PRN (17:39)
[2021-05-15] VITALS (97 sets, daily range): BP systolic 96–184; BP diastolic 45–136
[2021-05-15] MEDS: BLOOD SUGAR DIAGNOSTIC STRIP TEST SCH ×4 (00:27→18:53)
[2021-05-15] MEDS: IPRATROPIUM/ALBUTEROL 0.5-3(2.5)MG/3ML NEB HHN SCH ×6 (00:30→21:09)
[2021-05-15] MEDS: METOCLOPRAMIDE HCL 10MG/2ML VIAL IV SCH ×4 (00:35→18:54)
[2021-05-15] MEDS: INSULIN LISPRO 100 UNITS/ML SUBCUT SCH ×4 (00:36→18:00)
[2021-05-15] MEDS: CEFEPIME 1,000 MG in DEXTROSE 5% WATER 50 ML IV SCH (05:39)
[2021-05-15] MEDS: VANCOMYCIN 750 MG PREMIX 150 ML IV SCH (06:30)
[2021-05-15 06:40] LABS: HEMATOCRIT. 26.5 % (36.0-48.0); HEMOGLOBIN. 8.6 g/dL (12.0-16.0); MEAN CORPUSCULAR VOLUME 92.6 fL (81.0-99.0); PLATELET 212 x1000/uL (130-400); RED BLOOD CELL COUNT 2.86 mill/uL (4.2-5.4); RED CELL DISTRIBUTION WIDTH 14.1 % (11.6-14.6)
[2021-05-15 07:23] LABS: CHLORIDE 102 mEq/L (98-107)
[2021-05-15] MEDS: PANTOPRAZOLE SODIUM 40 MG/VIAL IV SCH (08:12)
[2021-05-15] MEDS: METOPROLOL TARTRATE 50MG TABLET PO SCH ×2 (08:13→21:19)
[2021-05-15] MEDS: LEVETIRACETAM 500MG/5ML CUP PO SCH ×2 (08:13→21:19)
[2021-05-15] MEDS: FOLIC ACID 1MG TABLET PO SCH (08:13)
[2021-05-15] MEDS: ENOXAPARIN 40MG/0.4ML SYR SUBCUT SCH (08:13)
[2021-05-15] MEDS: THIAMINE HCL 100MG TABLET PO SCH (08:13)
[2021-05-15] MEDS: LISINOPRIL 20MG TABLET PO SCH (08:14)
[2021-05-15] MEDS: ACETAMINOPHEN 325MG TABLET PO PRN ×2 (08:25→16:40)
[2021-05-15 09:21] LABS: BG BASE EXCESS 6.2 mmol/L (-2.0-2.0); BG CARBOXYHEMOGLOBIN 0.5 % (0.5-1.5); BG DEOXYHEMOGLOBIN 9.6 % (0.0-5.0); BG FRACTION INSPIRED OXYGEN 55; BG HCO3 ACT 31.9 mmol/L (22.0-26.0); BG METHEMOGLOBIN 0.3 % (0.0-1.5); BG OXYGEN SATURATION 90.3 % (92.0-98.5); BG OXYHEMOGLOBIN 89.6 % (94.0-97.0); BG PCO2 52.8 mmHg (35.0-45.0); BG PH 7.399 (7.350-7.450); BG PO2 62.1 mmHg (75.0-100.0); BG SAMPLE SITE RIGHT RADIAL; BG TOTAL HEMOGLOBIN 8.7 g/dL (12.0-18.0); BG VENT MODE VENT - AC
[2021-05-15] MEDS: COLISTIMETHATE SODIUM 150MG/VIAL INH SCH ×2 (15:30→21:00)
[2021-05-15] MEDS: LORAZEPAM 2MG/ML CPJ IV PRN (15:36)
[2021-05-15 15:49] LABS: PLATELET ESTIMATE NORMAL
[2021-05-15] MEDS: MEROPENEM 1,000 MG in SODIUM CHLORIDE 0.9% 100 ML IV SCH ×2 (16:40→23:00)
[2021-05-15] MEDS: FENTANYL CITRATE/PF 2,500 MCG in SODIUM CHLORIDE 0.9% 200 ML IV PRN (18:54)
[2021-05-16] VITALS (92 sets, daily range): BP systolic 84–171; BP diastolic 46–89
[2021-05-16] MEDS: IPRATROPIUM/ALBUTEROL 0.5-3(2.5)MG/3ML NEB HHN SCH ×7 (00:56→20:42)
[2021-05-16] MEDS: MIDAZOLAM HCL 100 MG in SODIUM CHLORIDE 0.9% 80 ML IV PRN (01:00)
[2021-05-16] MEDS: METOCLOPRAMIDE HCL 10MG/2ML VIAL IV SCH ×4 (01:05→17:49)
[2021-05-16] MEDS: VANCOMYCIN 750 MG PREMIX 150 ML IV SCH ×3 (01:06→23:34)
[2021-05-16] MEDS: CLONIDINE 0.1MG TABLET PO PRN (01:22)
[2021-05-16] MEDS: BLOOD SUGAR DIAGNOSTIC STRIP TEST SCH ×4 (06:00→17:49)
[2021-05-16] MEDS: INSULIN LISPRO 100 UNITS/ML SUBCUT SCH ×4 (06:00→18:37)
[2021-05-16 06:32] LABS: CHLORIDE 104 mEq/L (98-107)
[2021-05-16] MEDS: MEROPENEM 1,000 MG in SODIUM CHLORIDE 0.9% 100 ML IV SCH ×3 (06:46→23:00)
[2021-05-16] MEDS: FENTANYL CITRATE/PF 2,500 MCG in SODIUM CHLORIDE 0.9% 200 ML IV PRN ×2 (08:57→19:58)
[2021-05-16] MEDS: LEVETIRACETAM 500MG/5ML CUP PO SCH ×2 (09:48→20:58)
[2021-05-16] MEDS: COLISTIMETHATE SODIUM 150MG/VIAL INH SCH ×2 (09:49→14:37)
[2021-05-16] MEDS: ENOXAPARIN 40MG/0.4ML SYR SUBCUT SCH (09:49)
[2021-05-16] MEDS: PANTOPRAZOLE SODIUM 40 MG/VIAL IV SCH (09:49)
[2021-05-16] MEDS: LISINOPRIL 20MG TABLET PO SCH (09:50)
[2021-05-16] MEDS: FOLIC ACID 1MG TABLET PO SCH (09:50)
[2021-05-16] MEDS: THIAMINE HCL 100MG TABLET PO SCH (09:50)
[2021-05-16] MEDS: METOPROLOL TARTRATE 50MG TABLET PO SCH ×2 (09:51→20:58)
[2021-05-16 10:13] LABS: BG BASE EXCESS 4.6 mmol/L (-2.0-2.0); BG CARBOXYHEMOGLOBIN 0.5 % (0.5-1.5); BG FRACTION INSPIRED OXYGEN 100; BG HCO3 ACT 30.5 mmol/L (22.0-26.0); BG METHEMOGLOBIN 0.2 % (0.0-1.5); BG OXYGEN SATURATION 90.9 % (92.0-98.5); BG OXYHEMOGLOBIN 90.3 % (94.0-97.0); BG PCO2 52.6 mmHg (35.0-45.0); BG PH 7.381 (7.350-7.450); BG PO2 63.5 mmHg (75.0-100.0); BG SAMPLE SITE RIGHT RADIAL; BG TOTAL HEMOGLOBIN 8.8 g/dL (12.0-18.0); BG VENT MODE VENT - PRVC
[2021-05-16] MEDS: ENOXAPARIN 60MG/0.6ML SYR SUBCUT SCH (17:49)
[2021-05-17] VITALS (98 sets, daily range): BP systolic 79–155; BP diastolic 42–98
[2021-05-17] MEDS: IPRATROPIUM/ALBUTEROL 0.5-3(2.5)MG/3ML NEB HHN SCH ×6 (00:45→20:20)
[2021-05-17] MEDS: COLISTIMETHATE SODIUM 150MG/VIAL INH SCH ×2 (00:56→10:18)
[2021-05-17] MEDS: BLOOD SUGAR DIAGNOSTIC STRIP TEST SCH ×4 (01:00→18:51)
[2021-05-17] MEDS: INSULIN LISPRO 100 UNITS/ML SUBCUT SCH ×4 (02:11→18:59)
[2021-05-17] MEDS ORDERED: VASOPRESSIN 20 UNIT in SODIUM CHLORIDE 0.9% 99 ML IV PRN (02:45)
[2021-05-17] MEDS: NOREPINEPHRINE 8 MG in DEXT 5% WATER 242 ML IV PRN (03:45)
[2021-05-17] MEDS: ENOXAPARIN 60MG/0.6ML SYR SUBCUT SCH (05:56)
[2021-05-17] MEDS: METOCLOPRAMIDE HCL 10MG/2ML VIAL IV SCH ×4 (05:56→18:59)
[2021-05-17] MEDS: MEROPENEM 1,000 MG in SODIUM CHLORIDE 0.9% 100 ML IV SCH ×2 (05:56→13:09)
[2021-05-17 08:43] LABS: BG BASE EXCESS 3.8 mmol/L (-2.0-2.0); BG CARBOXYHEMOGLOBIN 0.7 % (0.5-1.5); BG DEOXYHEMOGLOBIN 10.3 % (0.0-5.0); BG FRACTION INSPIRED OXYGEN 100; BG HCO3 ACT 31.6 mmol/L (22.0-26.0); BG METHEMOGLOBIN 0.5 % (0.0-1.5); BG OXYGEN SATURATION 89.6 % (92.0-98.5); BG OXYHEMOGLOBIN 88.5 % (94.0-97.0); BG PCO2 68.4 mmHg (35.0-45.0); BG PH 7.282 (7.350-7.450); BG PO2 61.1 mmHg (75.0-100.0); BG SAMPLE SITE RIGHT RADIAL; BG VENT MODE PRVC
[2021-05-17] MEDS: METOPROLOL TARTRATE 50MG TABLET PO SCH ×2 (09:00→21:25)
[2021-05-17] MEDS: LISINOPRIL 20MG TABLET PO SCH (09:00)
[2021-05-17] MEDS: LEVETIRACETAM 500MG/5ML CUP PO SCH ×2 (09:55→21:24)
[2021-05-17] MEDS: FOLIC ACID 1MG TABLET PO SCH (09:55)
[2021-05-17] MEDS: PANTOPRAZOLE SODIUM 40 MG/VIAL IV SCH (09:55)
[2021-05-17] MEDS: THIAMINE HCL 100MG TABLET PO SCH (09:55)
[2021-05-17] MEDS: VANCOMYCIN 750 MG PREMIX 150 ML IV SCH ×2 (10:01→23:33)
[2021-05-17] MEDS ORDERED: PHENYTOIN SODIUM 100MG/2ML VIAL IV NR (12:00)
[2021-05-17] MEDS: ACETAMINOPHEN 325MG TABLET PO PRN (12:14)
[2021-05-17 12:43] LABS: HEMATOCRIT. 25.5 % (36.0-48.0); HEMOGLOBIN. 7.9 g/dL (12.0-16.0); MEAN CORPUSCULAR HEMOGLOBIN 29.5 pg (28.0-32.0); MEAN CORPUSCULAR VOLUME 95.3 fL (81.0-99.0); MEAN PLATELET VOLUME 8.2 fl (7.4-10.4); PLATELET 190 x1000/uL (130-400); RED BLOOD CELL COUNT 2.67 mill/uL (4.2-5.4); RED CELL DISTRIBUTION WIDTH 14.1 % (11.6-14.6)
[2021-05-17 12:51] LABS: CHLORIDE 102 mEq/L (98-107)
[2021-05-17] MEDS: FENTANYL CITRATE/PF 2,500 MCG in SODIUM CHLORIDE 0.9% 200 ML IV PRN (12:57)
[2021-05-18] VITALS (100 sets, daily range): BP systolic 80–150; BP diastolic 36–87
[2021-05-18] MEDS: IPRATROPIUM/ALBUTEROL 0.5-3(2.5)MG/3ML NEB HHN SCH ×7 (00:11→21:01)
[2021-05-18] MEDS: METOCLOPRAMIDE HCL 10MG/2ML VIAL IV SCH ×4 (01:03→18:52)
[2021-05-18] MEDS: MEROPENEM 1,000 MG in SODIUM CHLORIDE 0.9% 100 ML IV SCH ×2 (01:04→12:34)
[2021-05-18] MEDS: BLOOD SUGAR DIAGNOSTIC STRIP TEST SCH ×5 (01:10→23:51)
[2021-05-18] MEDS: ACETAMINOPHEN 325MG TABLET PO PRN (01:19)
[2021-05-18] MEDS: INSULIN LISPRO 100 UNITS/ML SUBCUT SCH ×4 (01:30→18:54)
[2021-05-18] MEDS ORDERED: SODIUM CHLORIDE 0.9% 500 ML IV ONE (04:00)
[2021-05-18] MEDS: FENTANYL CITRATE/PF 2,500 MCG in SODIUM CHLORIDE 0.9% 200 ML IV PRN ×3 (04:15→12:43)
[2021-05-18] MEDS: NOREPINEPHRINE 8 MG in DEXT 5% WATER 242 ML IV PRN ×2 (04:24→15:29)
[2021-05-18] MEDS: PHENYTOIN SODIUM 100MG/2ML VIAL IV SCH ×3 (06:00→21:09)
[2021-05-18] MEDS ORDERED: FUROSEMIDE 100MG/10ML VIAL IVP SCH (08:00)
[2021-05-18 08:03] LABS: PLATELET ESTIMATE NORMAL
[2021-05-18] MEDS: FOLIC ACID 1MG TABLET PO SCH (09:00)
[2021-05-18] MEDS: LEVETIRACETAM 500MG/5ML CUP PO SCH ×2 (09:00→21:09)
[2021-05-18] MEDS: COLISTIMETHATE SODIUM 150MG/VIAL INH SCH ×2 (09:00→21:04)
[2021-05-18] MEDS: METOPROLOL TARTRATE 50MG TABLET PO SCH ×2 (09:00→21:09)
[2021-05-18] MEDS: LISINOPRIL 20MG TABLET PO SCH (09:00)
[2021-05-18] MEDS: THIAMINE HCL 100MG TABLET PO SCH (09:00)
[2021-05-18] MEDS ORDERED: SODIUM BICARBONATE 8.4% 1 MEQ/ML 50ML SYR IV NR (09:05)
[2021-05-18] MEDS ORDERED: INSULIN REGULAR (HUMULIN R) 300UNITS/3ML VIAL IV NR (09:05)
[2021-05-18 09:23] LABS: BG BASE EXCESS 0.5 mmol/L (-2.0-2.0); BG DEOXYHEMOGLOBIN 10.9 % (0.0-5.0); BG FRACTION INSPIRED OXYGEN 100; BG HCO3 ACT 28.2 mmol/L (22.0-26.0); BG METHEMOGLOBIN 0.2 % (0.0-1.5); BG OXYGEN SATURATION 89.1 % (92.0-98.5); BG OXYHEMOGLOBIN 88.9 % (94.0-97.0); BG PCO2 63.5 mmHg (35.0-45.0); BG PH 7.265 (7.350-7.450); BG PO2 60.9 mmHg (75.0-100.0); BG SAMPLE SITE LEFT RADIAL; BG TOTAL RESPIRATORY RATE 18 b/min; BG VENT MODE VENT- PRVC
[2021-05-18] MEDS: PANTOPRAZOLE SODIUM 40 MG/VIAL IV SCH (09:40)
[2021-05-18 10:23] LABS: HEMATOCRIT. 23.6 % (36.0-48.0); HEMOGLOBIN. 7.9 g/dL (12.0-16.0); MEAN CORPUSCULAR VOLUME 93.1 fL (81.0-99.0); MEAN PLATELET VOLUME 7.9 fl (7.4-10.4); PLATELET 214 x1000/uL (130-400); RED BLOOD CELL COUNT 2.53 mill/uL (4.2-5.4); RED CELL DISTRIBUTION WIDTH 13.7 % (11.6-14.6)
[2021-05-18] MEDS ORDERED: SODIUM POLYSTYRENE SULFONATE 15 G/60 ML BOT PO NR (10:30)
[2021-05-18] MEDS ORDERED: SODIUM POLYSTYRENE SULFONATE 15 G/60 ML BOT NG SCH ×2 (11:00)
[2021-05-18] MEDS ORDERED: ROCURONIUM BROMIDE 10MG/ML VIAL 5ML IV ONE (12:16)
[2021-05-18] MEDS ORDERED: PHENYLEPHRINE HCL 10 MG/ML 1ML (IV VIAL) IV ONE (12:30)
[2021-05-18 12:48] LABS: CHLORIDE 101 mEq/L (98-107)
[2021-05-18 15:45] LABS: PLATELET ESTIMATE NORMAL
[2021-05-18] MEDS ORDERED: SODIUM POLYSTYRENE SULFONATE 15 G/60 ML BOT NG NR ×2 (16:00→23:30)
[2021-05-18] MEDS: MIDODRINE HCL 5MG TABLET PO SCH ×2 (17:00→18:53)
[2021-05-19] VITALS (105 sets, daily range): BP systolic 65–169; BP diastolic 35–89
[2021-05-19] MEDS: METOCLOPRAMIDE HCL 10MG/2ML VIAL IV SCH ×4 (00:03→17:47)
[2021-05-19] MEDS: INSULIN LISPRO 100 UNITS/ML SUBCUT SCH ×4 (00:04→17:47)
[2021-05-19] MEDS: MEROPENEM 1,000 MG in SODIUM CHLORIDE 0.9% 100 ML IV SCH ×2 (00:05→12:26)
[2021-05-19 03:56] LABS: BG BASE EXCESS 3.8 mmol/L (-2.0-2.0); BG CARBOXYHEMOGLOBIN 0.7 % (0.5-1.5); BG DEOXYHEMOGLOBIN 39.8 % (0.0-5.0); BG FRACTION INSPIRED OXYGEN 100; BG HCO3 ACT 29.4 mmol/L (22.0-26.0); BG METHEMOGLOBIN 0.3 % (0.0-1.5); BG OXYGEN SATURATION 59.8 % (92.0-98.5); BG OXYHEMOGLOBIN 59.2 % (94.0-97.0); BG PCO2 49.4 mmHg (35.0-45.0); BG PH 7.392 (7.350-7.450); BG PO2 30.7 mmHg (75.0-100.0); BG SAMPLE SITE RIGHT RADIAL; BG TOTAL HEMOGLOBIN 9.6 g/dL (12.0-18.0); BG VENT MODE VENT - AC
[2021-05-19] MEDS: IPRATROPIUM/ALBUTEROL 0.5-3(2.5)MG/3ML NEB HHN SCH ×5 (04:00→20:21)
[2021-05-19] MEDS: ACETAMINOPHEN 325MG TABLET PO PRN (04:11)
[2021-05-19] MEDS: MIDAZOLAM HCL 100 MG in SODIUM CHLORIDE 0.9% 80 ML IV PRN (04:47)
[2021-05-19] MEDS: FENTANYL CITRATE/PF 2,500 MCG in SODIUM CHLORIDE 0.9% 200 ML IV PRN ×2 (05:06→18:54)
[2021-05-19] MEDS: PHENYTOIN SODIUM 100MG/2ML VIAL IV SCH ×3 (05:59→21:54)
[2021-05-19] MEDS: BLOOD SUGAR DIAGNOSTIC STRIP TEST SCH ×4 (06:00→23:42)
[2021-05-19 06:45] LABS: HEMATOCRIT. 25.8 % (36.0-48.0); HEMOGLOBIN. 8.4 g/dL (12.0-16.0); MEAN CORPUSCULAR HEMOGLOBIN 30.2 pg (28.0-32.0); MEAN CORPUSCULAR VOLUME 92.5 fL (81.0-99.0); MEAN PLATELET VOLUME 8.4 fl (7.4-10.4); PLATELET 242 x1000/uL (130-400); RED BLOOD CELL COUNT 2.79 mill/uL (4.2-5.4); RED CELL DISTRIBUTION WIDTH 13.7 % (11.6-14.6)
[2021-05-19 07:20] LABS: PHOSPHORUS 5.3 mg/dL (2.5-4.9)
[2021-05-19] MEDS: COLISTIMETHATE SODIUM 150MG/VIAL INH SCH (08:15)
[2021-05-19 08:53] LABS: BG BASE EXCESS 2.8 mmol/L (-2.0-2.0); BG CARBOXYHEMOGLOBIN 0.7 % (0.5-1.5); BG DEOXYHEMOGLOBIN 11.1 % (0.0-5.0); BG FRACTION INSPIRED OXYGEN 100; BG HCO3 ACT 31.3 mmol/L (22.0-26.0); BG METHEMOGLOBIN 0.4 % (0.0-1.5); BG OXYGEN SATURATION 88.8 % (92.0-98.5); BG OXYHEMOGLOBIN 87.8 % (94.0-97.0); BG PCO2 74.6 mmHg (35.0-45.0); BG PO2 66.6 mmHg (75.0-100.0); BG SAMPLE SITE RIGHT RADIAL; BG TOTAL HEMOGLOBIN 8.8 g/dL (12.0-18.0); BG VENT MODE VENT - PRVC
[2021-05-19] MEDS: THIAMINE HCL 100MG TABLET PO SCH (09:00)
[2021-05-19] MEDS: MIDODRINE HCL 5MG TABLET PO SCH ×3 (09:00→17:00)
[2021-05-19] MEDS: FOLIC ACID 1MG TABLET PO SCH (09:00)
[2021-05-19] MEDS: LEVETIRACETAM 500MG/5ML CUP PO SCH ×2 (09:00→21:53)
[2021-05-19] MEDS: METOPROLOL TARTRATE 50MG TABLET PO SCH (09:00)
[2021-05-19] MEDS: PANTOPRAZOLE SODIUM 40 MG/VIAL IV SCH (09:23)
[2021-05-19] MEDS ORDERED: SODIUM CHLORIDE 0.45% 1,000 ML IV SCH (12:00)
[2021-05-19 17:46] LABS: PLATELET ESTIMATE NORMAL
[2021-05-19] MEDS: DOXYCYCLINE HYCLATE 100MG CAPSULE PO SCH (21:54)
[2021-05-19 22:33] LABS: BG BASE EXCESS -1.4 mmol/L (-2.0-2.0); BG CARBOXYHEMOGLOBIN 0.6 % (0.5-1.5); BG DEOXYHEMOGLOBIN 4.2 % (0.0-5.0); BG FRACTION INSPIRED OXYGEN 100; BG HCO3 ACT 32.2 mmol/L (22.0-26.0); BG METHEMOGLOBIN 0.5 % (0.0-1.5); BG OXYGEN SATURATION 95.8 % (92.0-98.5); BG OXYHEMOGLOBIN 94.7 % (94.0-97.0); BG PCO2 150.4 mmHg (35.0-45.0); BG PH 6.949 (7.350-7.450); BG SAMPLE SITE LEFT RADIAL; BG TOTAL HEMOGLOBIN 8.7 g/dL (12.0-18.0); BG VENT MODE VENT - P/C
[2021-05-20] VITALS (73 sets, daily range): BP systolic 50–152; BP diastolic 25–111
[2021-05-20] MEDS: MEROPENEM 1,000 MG in SODIUM CHLORIDE 0.9% 100 ML IV SCH (00:22)
[2021-05-20] MEDS: METOCLOPRAMIDE HCL 10MG/2ML VIAL IV SCH ×2 (00:23→05:52)
[2021-05-20] MEDS: INSULIN LISPRO 100 UNITS/ML SUBCUT SCH ×3 (00:24→12:00)
[2021-05-20 00:48] LABS: BG FRACTION INSPIRED OXYGEN 100; BG SAMPLE SITE RIGHT RADIAL; BG VENT MODE PRVC
[2021-05-20] MEDS: IPRATROPIUM/ALBUTEROL 0.5-3(2.5)MG/3ML NEB HHN SCH ×3 (01:00→07:57)
[2021-05-20] MEDS: COLISTIMETHATE SODIUM 150MG/VIAL INH SCH ×2 (01:00→07:58)
[2021-05-20] MEDS: NOREPINEPHRINE 8 MG in DEXT 5% WATER 242 ML IV PRN (02:06)
[2021-05-20] MEDS: BLOOD SUGAR DIAGNOSTIC STRIP TEST SCH ×2 (05:41→12:08)
[2021-05-20] MEDS: PHENYTOIN SODIUM 100MG/2ML VIAL IV SCH (05:52)
[2021-05-20 07:46] LABS: HEMATOCRIT. 24.1 % (36.0-48.0); MEAN CORPUSCULAR HEMOGLOBIN 30.8 pg (28.0-32.0); MEAN CORPUSCULAR VOLUME 92.6 fL (81.0-99.0); PLATELET 200 x1000/uL (130-400)
[2021-05-20 07:48] LABS: BG PCO2 84.6 mmHg (35.0-45.0); BG PH 7.168 (7.350-7.450)
[2021-05-20 07:49] LABS: BG PO2 41.3 mmHg (75.0-100.0)
[2021-05-20 07:50] LABS: BG BASE EXCESS 0.4 mmol/L (-2.0-2.0)
[2021-05-20 07:51] LABS: BG OXYGEN SATURATION 68.4 % (92.0-98.5); BG OXYHEMOGLOBIN 67.9 % (94.0-97.0)
[2021-05-20 07:52] LABS: BG CARBOXYHEMOGLOBIN 0.6 % (0.5-1.5)
[2021-05-20 07:53] LABS: BG METHEMOGLOBIN 0.2 % (0.0-1.5)
[2021-05-20 07:54] LABS: BG DEOXYHEMOGLOBIN 31.3 % (0.0-5.0)
[2021-05-20 08:16] LABS: PHOSPHORUS 6.6 mg/dL (2.5-4.9)
[2021-05-20 08:32] LABS: BG BASE EXCESS 4.3 mmol/L (-2.0-2.0); BG CARBOXYHEMOGLOBIN 0.3 % (0.5-1.5); BG DEOXYHEMOGLOBIN 9.7 % (0.0-5.0); BG FRACTION INSPIRED OXYGEN 100; BG HCO3 ACT 30.8 mmol/L (22.0-26.0); BG METHEMOGLOBIN 0.3 % (0.0-1.5); BG OXYGEN SATURATION 90.2 % (92.0-98.5); BG OXYHEMOGLOBIN 89.7 % (94.0-97.0); BG PCO2 57.3 mmHg (35.0-45.0); BG PH 7.348 (7.350-7.450); BG PO2 61.3 mmHg (75.0-100.0); BG SAMPLE SITE LEFT RADIAL; BG TOTAL HEMOGLOBIN 8.6 g/dL (12.0-18.0); BG TOTAL RESPIRATORY RATE 24 b/min; BG VENT MODE VENT- PRVC
[2021-05-20] MEDS: THIAMINE HCL 100MG TABLET PO SCH (10:16)
[2021-05-20] MEDS: PANTOPRAZOLE SODIUM 40 MG/VIAL IV SCH (10:16)
[2021-05-20] MEDS: FOLIC ACID 1MG TABLET PO SCH (10:16)
[2021-05-20] MEDS: LEVETIRACETAM 500MG/5ML CUP PO SCH (10:16)
[2021-05-20] MEDS: MIDODRINE HCL 5MG TABLET PO SCH (10:16)
[2021-05-20] MEDS: DOXYCYCLINE HYCLATE 100MG CAPSULE PO SCH (10:16)
[2021-05-20] MEDS ORDERED: MORPHINE SULFATE 250 MG in DEXT 5% WATER 240 ML IV PRN ×3 (12:00→22:00)
[2021-05-20] MEDS ORDERED: MORPHINE SULFATE 250 MG in SODIUM CHLORIDE 0.9% 240 ML IV PRN (13:02)
[2021-05-20 20:12] LABS: PLATELET ESTIMATE NORMAL
== END 2021-05-20 18:24 | DRG 870 ==
LOC: ER 10:42 → EDBEDREQ 11:11 → MICUSO 12:38 → EDBEDREQ 12:47 → ENRESERV 15:11 → CANBEDREQ 20:41 → 5EST 05-14 17:18 → CVICU 05-15 22:30
PROVIDERS: ADMIT Internal Medicine; ATTEND Internal Medicine
PROC: 5A1955Z Respiratory Ventilation, Greater than 96 Consecutive Hours (ICD-10-PCS; 2021-05-01)
PROC: 0BH17EZ Insertion of Endotracheal Airway into Trachea, Via Natural or Artificial Opening (ICD-10-PCS; 2021-05-01)
PROC: 06HY33Z Insertion of Infusion Device into Lower Vein, Percutaneous Approach (ICD-10-PCS; 2021-05-01)
PROC: B54CZZA Ultrasonography of Left Lower Extremity Veins, Guidance (ICD-10-PCS; 2021-05-01)
PROC: 02HV33Z Insertion of Infusion Device into Superior Vena Cava, Percutaneous Approach (ICD-10-PCS; principal; 2021-05-02)
PROC: B548ZZA Ultrasonography of Superior Vena Cava, Guidance (ICD-10-PCS; 2021-05-02)
PROC: B5181ZA Fluoroscopy of Superior Vena Cava using Low Osmolar Contrast, Guidance (ICD-10-PCS; 2021-05-02)
DX: A41.89 Other specified sepsis (principal); U07.1 COVID-19; E43 Unspecified severe protein-calorie malnutrition; J12.82 Pneumonia due to coronavirus disease 2019; R65.21 Severe sepsis with septic shock; J80 Acute respiratory distress syndrome; G92 Toxic encephalopathy; I21.4 Non-ST elevation (NSTEMI) myocardial infarction; E87.0 Hyperosmolality and hypernatremia; E87.2 Acidosis; M62.82 Rhabdomyolysis; N17.9 Acute kidney failure, unspecified; D63.8 Anemia in other chronic diseases classified elsewhere; E11.65 Type 2 diabetes mellitus with hyperglycemia; E78.00 Pure hypercholesterolemia, unspecified; E83.51 Hypocalcemia; E86.1 Hypovolemia; E87.6 Hypokalemia; F03.90 Unspecified dementia, unspecified severity, without behavioral disturbance, psychotic disturbance, mood disturbance, and anxiety; F20.9 Schizophrenia, unspecified; F31.9 Bipolar disorder, unspecified; G40.909 Epilepsy, unspecified, not intractable, without status epilepticus; I11.9 Hypertensive heart disease without heart failure; E87.5 Hyperkalemia; I49.3 Ventricular premature depolarization; Z66 Do not resuscitate; L89.156 Pressure-induced deep tissue damage of sacral region; Y92.89 Other specified places as the place of occurrence of the external cause; Z82.49 Family history of ischemic heart disease and other diseases of the circulatory system; Z78.1 Physical restraint status
CPT/HCPCS: 36415; 36600; 71045; 76770; 76937; 80048; 80053; 80076; 80202; 81003; 82010; 82040; 82375; 82550; 82607; 82728; 82746; 82805; 82962; 83036; 83540; 83550; 83605; 83615; 83735; 83880; 83930; 83935; 84100; 84132; 84134; 84145; 84439; 84443; 84478; 84484; 85025; 85379; 85384; 86140; 86850; 86900; 87070; 87426; 93005; 93970; 93971; 94002; 94003; 94640; 99291; A6261; C1725; C1893; C9113; J0456; J0692; J0696; J0770; J1100; J1165; J1650; J1815; J1940; J2060; J2185; J2250; J2270; J2274; J2370; J2405; J2704; J2765; J3010; J3370; J3490; J7030; J7040; J7050; J7060; U0003; U0005; A4315